=== PATIENT | female | born 1995 | race American Indian/Alaskan Native ===

== ENCOUNTER 2020-10-06 21:52 | Emergency (ER) | payer OTHER ==
[2020-10-06 22:06] VITALS: BP 161/79
[2020-10-06] MEDS ORDERED: ACETAMINOPHEN 325 MG TAB ONE (22:16)
[2020-10-06] MEDS ORDERED: ACETAMINOPHEN 325 MG TAB PO ONE (22:20)
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
[2020-10-06 23:55] LABS: Basophils # (Auto) 0.1 K/mm3 (0.0-0.1); Basophils % (Auto) 0.6 % (0.0-1.8); Eosinophils # (Auto) 0.4 K/mm3 (0.0-0.4); Eosinophils % (Auto) 4.3 % (0.0-4.3); Hematocrit 39.1 % (30.3-42.9); Hemoglobin 13.3 gm/dl (10.1-14.3); Lymphocytes # (Auto) 2.1 K/mm3 (1.2-5.4); Lymphocytes % (Auto) 25.2 % (13.4-35.0); Mean Corpuscular HGB Conc 34 % (30-34); Mean Corpuscular Volume 82 fl (79-97); Monocytes # (Auto) 0.7 K/mm3 (0.0-0.8); Monocytes % (Auto) 8.2 % (0.0-7.3); Platelet Count 257 K/mm3 (140-440); Red Blood Count 4.79 M/mm3 (3.65-5.03)
[2020-10-07 00:07] LABS: Alanine Aminotransferase 13 units/L (7-56); Albumin 4.3 g/dL (3.9-5); BUN/Creatinine Ratio 21; Blood Urea Nitrogen 15 mg/dL (7-17); Calcium 9.2 mg/dL (8.4-10.2); Hemolysis Index 6
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
== END 2020-10-07 00:39 | disposition left against medical advice (07) ==
LOC: ED 21:52
DX: S09.90XA Unspecified injury of head, initial encounter (principal); V49.49XA Driver injured in collision with other motor vehicles in traffic accident, initial encounter; Y93.89 Activity, other specified; Y92.410 Unspecified street and highway as the place of occurrence of the external cause; Y99.8 Other external cause status
CPT/HCPCS: 36415; 70450; 72125; 80053; 84703; 85025

== ENCOUNTER 2020-10-07 01:22 | Emergency (ER) | payer OTHER ==
[2020-10-07] MEDS ORDERED: KETOROLAC 60 MG/2 ML INJ IM ONE (06:25)
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
[2020-10-07 08:25] VITALS: BP 143/76
== END 2020-10-07 08:25 | disposition home or self-care (01) ==
LOC: ED 01:22
DX: S62.502A Fracture of unspecified phalanx of left thumb, initial encounter for closed fracture (principal); S93.401A Sprain of unspecified ligament of right ankle, initial encounter; S20.219A Contusion of unspecified front wall of thorax, initial encounter; S09.90XA Unspecified injury of head, initial encounter; M79.18 Myalgia, other site; F12.90 Cannabis use, unspecified, uncomplicated; Z79.899 Other long term (current) drug therapy; V49.49XA Driver injured in collision with other motor vehicles in traffic accident, initial encounter; Y92.410 Unspecified street and highway as the place of occurrence of the external cause; Y93.89 Activity, other specified; Y99.8 Other external cause status
CPT/HCPCS: 71046; 73130; 96372; 99283; J1885